=== PATIENT | female | born 1995 | race Caucasian/White ===

== ENCOUNTER 2017-11-25 15:42 | Emergency (ER) | payer MEDICARE, OTHER ==
[2017-11-25] MEDS: KETOROLAC 60 MG INJ IM (17:13)
[2017-11-25] MEDS: HYDROCODONE/APAP (5/325) TAB PO ×2 (18:08→20:17)
[2017-11-25] MEDS: ONDANSETRON (ODT) 4 MG TAB ODT (19:43)
== END 2017-11-25 20:20 | disposition home or self-care (01) ==
LOC: FTE 15:42
DX: K08.89 Other specified disorders of teeth and supporting structures (principal); R05 Cough
CPT/HCPCS: 71045; 96372; 99284-25